=== PATIENT | female | born 1955 | race Caucasian/White ===

== ENCOUNTER 2021-08-13 07:08 | Outpatient (CLI) | payer OTHER, SELFPAY ==
--- NOTE | 2021-08-13 07:15 | USCV_ITS ---
GuajardoNikita partidaa Age: 66 Gender: F : 1955 Exam Date: 08/13/2021 07:22 Ordering Phys: Genny Webb NP Technologist: Jeff Miller Exam Location: [facility] – [place]_ Indication: RLE swelling PROCEDURES: Grayscale and duplex color Doppler venous Ultrasound performed in only the right lower extremity. FINDINGS: Normal 2-D Doppler and augmentation and compressibility throughout the lower extremity venous structures. Additional imaging through the proximal calf veins also reveals no thrombus. Limited evaluation of the greater saphenous vein is patent with no thrombus. CONCLUSIONS No DVT right lower extremity. Dr. Adela Eagle DO (Electronically Signed) Final Date: 13 August 2021 08:33 S
== END 2021-08-13 07:09 | disposition home or self-care (01) ==
LOC: US 07:11
PROVIDERS: PCP Family Medicine; Visit Provider Family Medicine
DX: M25.561 Pain in right knee (principal); M79.89 Other specified soft tissue disorders
CPT/HCPCS: 93971

== ENCOUNTER 2022-01-06 11:01 | Outpatient (CLI) | payer MEDICARE, SELFPAY ==
--- NOTE | 2022-01-06 11:41 | XR_ITS ---
WS: [id number] KNEE RIGHT TECHNIQUE: 3 views of the right knee CLINICAL INFORMATION: PAIN IN R KNEE COMPARISON: None. FINDINGS: Normal anatomic alignment. Moderate degenerative arthritis worse in the medial joint compartment. Min imal hypertrophic changes along the joint line. No acute fractures. Hypertrophic patella with distal quadriceps insertion enthesophyte. No significant joint effusion. XR/XR knee RT 3V* [id number] IMPRESSION: Moderate tricompartmental arthritis Kellgren-Faustino Classification: grade 3 (moderate): moderate multiple osteoph ytes, definite narrowing of joint space and some sclerosis and possible deformi ty of bone ends
--- NOTE | 2022-01-06 11:57 | XR_ITS ---
WS: [id number] KNEE LEFT TECHNIQUE: 3 views of the left knee CLINICAL INFORMATION: LEFT KNEE PAIN COMPARISON: None. FINDINGS: Normal anatomic alignment. Moderate degenerative arthritis worse in the medial joint compartment. Min imal hypertrophic changes along the joint line. No acute fractures. Hypertrophic patella with distal quadriceps insertion enthesophyte. No significant joint effusion. XR/XR knee LT 3V* [id number] IMPRESSION: Moderate tricompartmental arthritis worse in the medial joint compartment. Dege nerative arthritis slightly worse in the LEFT knee compared to the RIGHT. Kellgren-Faustino Classification:
== END 2022-01-06 11:02 | disposition home or self-care (01) ==
PROVIDERS: PCP Family Medicine; Visit Provider Family Medicine
DX: M13.862 Other specified arthritis, left knee (principal); M13.861 Other specified arthritis, right knee
CPT/HCPCS: 73562

== ENCOUNTER 2022-02-11 20:09 | Emergency (ER) | payer MEDICARE, SELFPAY ==
--- NOTE | 2022-02-11 20:27 | CTR_ITS ---
PROCEDURE INFORMATION: Exam: CT Head Without Contrast Exam date and time: 02/11/2022 9:50 PM Age: 67 years old Clinical indication: Injury or trauma; Fall; Blunt trauma (contusions or hematomas) TECHNIQUE: Imaging protocol: Computed tomography of the head without contrast. Radiation optimization: All CT scans at this facility use at least one of these dose optimization techniques: automated exposure control; mA and/or kV adjustment per patient size (includes targeted exams where dose is matched to clinical indication); or iterative reconstruction. COMPARISON: CT head wo con* [id number] 06/09/2018 6:57 PM RADIATION DOSE METRICS: Total DLP (mGy-cm): 818.26 FINDINGS: Brain: No acute abnormality. No edema or mass effect. No hemorrhage. Cerebral ventricles: No acute abnormality. No significant ventriculomegaly. Paranasal sinuses: No significant or acute abnormality. No air-fluid levels. Mastoid air cells: No acute abnormality. No significant mastoid effusion. Bones/joints: No acute osseous abnormality. No acute fracture. Soft tissues: No significant soft tissue abnormalities. CT/CT head wo con* [id number] IMPRESSION: No evidence of acute intracranial abnormality.
[2022-02-11 21:10] VITALS: BP 116/73; PULSE 74; RESP 16; TEMP 36.6; O2SAT 99; BMI 23.8
--- NOTE | 2022-02-11 21:15 | XRR_ITS ---
PROCEDURE INFORMATION: Exam: XR Left Shoulder Exam date and time: 02/11/2022 9:31 PM Age: 67 years old Clinical indication: Pain; Shoulder; Left; Additional info: Dislocation TECHNIQUE: Imaging protocol: XR Left shoulder. Views: 2 or more views. COMPARISON: CT Cervical Spine wo* [id number] 06/09/2018 7:00 PM FINDINGS: Bones/joints: There is minimally displaced fracture of the proximal humerus, involving the humeral neck and greater tuberosity region. There is no dislocation. Osteopenia is present. Soft tissues: Normal. Other findings: Three views submitted. XR/XR shoulder LT min 2V* [id number] IMPRESSION: Proximal humeral fracture with minimal displacement and no dislocation. Please also refer to shoulder CT exam report.
--- NOTE | 2022-02-11 21:45 | CTR_ITS ---
PROCEDURE INFORMATION: Exam: CT Left Upper Extremity Without Contrast, Shoulder Exam date and time: 02/11/2022 9:53 PM Age: 67 years old Clinical indication: Injury or trauma; Fall; Blunt trauma (contusions or hematomas); Shoulder; Left; Additional info: Possible dislocation TECHNIQUE: Imaging protocol: CT of the Left upper extremity without contrast was performed. Exam focused on the shoulder. Radiation optimization: All CT scans at this facility use at least one of these dose optimization techniques: automated exposure control; mA and/or kV adjustment per patient size (includes targeted exams where dose is matched to clinical indication); or iterative reconstruction. COMPARISON: CR (CHEST, ) 02/11/2022 9:31 PM RADIATION DOSE METRICS: Total DLP (mGy-cm): 1308.09 FINDINGS: Bones/joints: There is lipohemarthrosis in the glenohumeral joint. There is a slightly comminuted fracture involving the humeral neck and the greater tuberosity regions with minimal displacement of the fracture fragments. There is normal glenohumeral joint alignment. Osteopenia. Mild chronic AC joint hypertrophy. Next item no obvious glenoid process fracture. Soft tissues: Normal. Lymph nodes: Small calcified left hilar lymph node consistent with chronic granulomatous disease. CT/CT shoulder LT wo con* [id number] IMPRESSION: Proximal humeral fracture without dislocation. Other findings as above.
--- NOTE | 2022-02-11 21:56 | W.ED.FALL ---
HPI - Fall General: Chief Complaint: Extremity Injury, Upper Stated Complaint: collarbone injury due to fall, hit head Time Seen by Provider: 02/11/22 21:53 Course Vital Signs: Vital signs: Vital Signs Temperature 97.8 F 02/11/22 21:10 Pulse Rate 74 02/11/22 21:10 Respiratory Rate 16 02/11/22 21:10 Blood Pressure 116/73 02/11/22 21:10 Pulse Oximetry 99 02/11/22 21:10 Discharge Plan Discharge Condition: Stable Referrals: Sailaja Porras MD [Primary Care Provider] - Coding Level of Care Code ED Freelance Director for Nora Valverde
[2022-02-11 22:05] VITALS: BP 110/67; PULSE 80; RESP 18; O2SAT 97
--- NOTE | 2022-02-11 22:08 | ED_ITS ---
HPI - Extremity Problem General: Chief complaint: Extremity Injury, Upper Stated complaint: collarbone injury due to fall, hit head Time Seen by Provider: 02/11/22 21:53 Source: patient Mode of arrival: ambulatory Limitations: no limitations History of Present Illness: 67-year-old female who states that she tripped and fell just prior to arrival. She states she fell directly on her left shoulder has left shoulder pain she rates a 8 out of 10. States she is unable to move that arm without pain. States she also hit her head but denies any loss consciousness denies any neck pain patient's been amatory the event and denies any lower extremity pain Associated symptoms: Deny chest pain, fever(s) or rash Review of Systems Const: Denies: fever(s), chills, body aches or change in appetite Eyes: Denies: blurry vision or eye discomfort ENMT: Denies: throat pain or dental pain Card: Denies: chest pain Resp: Denies: dyspnea GI: Denies: abdominal pain, nausea, vomiting or diarrhea : Denies: dysuria Musc: Reports: extremity pain Skin/Breast: Denies: rash Neuro: Reports: headache(s) Psych: Denies: depression Markos/Lymph: Denies: easy bruising All/Imm: Denies: urticaria PFSH ED PFSH: Family History Denies family history of CAD (coronary artery disease) Social History Substance/Drug Use: never Physical Exam Const: COMMON NORMALS: no acute distress, patient oriented x3 and healthy appearing HENMT: COMMON NORMALS: normocephalic and atraumatic HEAD & SCALP: normocephalic and atraumatic Eye: COMMON NORMALS: Equal, round and reactive pupils present and EOMs intact bilaterally PUPIL: Yes Equal, round and reactive pupils present Neck/C-Spine: COMMON NORMALS: full ROM and supple OTHER: No midline tenderness no pain with range of motion Chest: COMMONS NORMALS: normal inspection of the chest and normal palpation of entire chest wall Resp: COMMON NORMALS: normal respiratory effort, No retractions, No use of accessory muscles and clear to auscultation bilaterally AUSCULTATION: clear to auscultation bilaterally Cardio: COMMON NORMALS: regular rate, regular rhythm and No murmurs present (Cardio) RATE: regular rate RHYTHM: regular rhythm GI: COMMON NORMALS: Normal to inspection, nondistended, normoactive bowel sounds present, Soft to palpation, non-tender and no masses PALPATION: Yes Soft to palpation Extremity: NARRATIVE EXTREMITY EXAM: No signs of dislocation on exam to the left shoulder she does have tenderness over the left proximal humerus Neuro: COMMON NORMALS: patient oriented x3, moves all extremities and no focal motor deficits Psych: COMMON NORMALS: mental status grossly normal, Normal thought process present and cooperative THOUGHT PROCESS: Normal thought process present Skin: COMMON NORMALS: no rashes or lesions noted and no wounds GENERAL SKIN EXAM: no rashes or lesions noted Course Vital Signs: Vital signs: Vital Signs Temperature 97.8 F 02/11/22 21:10 Pulse Rate 74 02/11/22 21:10 Respiratory Rate 16 02/11/22 21:10 Blood Pressure 116/73 02/11/22 21:10 Pulse Oximetry 99 02/11/22 21:10 MDM - Extremity (Nontraumatic) Medical Decision Making Patient presents here with proximal humerus fracture from a fall she is neurologically and vascularly intact. Patient placed in a sling will prescribe her pain meds she is to follow-up with orthopedics head CT is normal she has no C-spine tenderness no signs of C-spine injury. She is return if worsening. Lab Data Radiology Impressions Head CT 02/11/22 20:27 IMPRESSION: No evidence of acute intracranial abnormality. Shoulder X-Ray 02/11/22 21:15 IMPRESSION: Proximal humeral fracture with minimal displacement and no dislocation. Please also refer to shoulder CT exam report. Shoulder CT 02/11/22 21:45 IMPRESSION: Proximal humeral fracture without dislocation. Other findings as above. Discharge Plan Discharge Patient Disposition: Home Clinical Impression: Fall Fracture of humerus Qualifiers: Encounter type: initial encounter Humerus Location: proximal Fracture type: closed Fracture alignment: nondisplaced Laterality: left Condition: Stable Prescriptions: New hydrocodone-acetaminophen 5-325 mg tablet 1 tab PO Q6H PRN (Reason: pain) Qty: 14 0RF ondansetron 4 mg tablet,disintegrating 4 mg PO Q6H PRN (Reason: nausea and vomiting) Qty: 14 0RF Discharge Orders: Discharge ED (Routine); Ordered 02/11/22 Ordered By: Ubaldo Villalba Referrals: Sailaja Porras MD [Primary Care Provider] - Luis Felipe Rendon MD [Physician] - 1-3 days Discharge Diet: Advance as tolerated Discharge Activity: Resume usual activity Patient Instructions: Arm Fracture in Adults (ED), Opioid Safety Coding Level of Care Code ED Inspector Receiving for Chg Fwd Exam Comprehensive
[2022-02-11] MEDS: ondansetron 4 MG Tablet PO (22:23)
[2022-02-11] MEDS: HYDROcodone-acetaminophen 7.5-325 mg Tablet 1 TAB PO (22:24)
[2022-02-11 22:30] VITALS: BP 108/72; PULSE 74; RESP 18; O2SAT 97
[2022-02-11 23:00] VITALS: BP 102/61; PULSE 76; RESP 18; O2SAT 95
--- NOTE | 2022-02-12 10:33 | DCPLANNER ---
Addendum entered by Roma Amado 03/18/22 20:02: Patient had a follow up appointment scheduled with ortho - patient did not attend appointment. Addendum entered by Roma Amado 02/13/22 06:39: Patient had a follow up appointment scheduled for Thursday, February 17, 2022 at 10:00 with YON Jovel at ortho. Clinic will call patient with appointment information. Original Note: creative manager had message to schedule a follow up appointment for patient with ortho. creative manager sent patients information to the front staff at ortho. Patients information will be printed and reviewed. Clinic will call patient with appointment information.
== END 2022-02-11 23:00 | disposition home or self-care (01) ==
PROVIDERS: Emergency Provider Emergency Medicine; PCP Family Medicine
DX: S42.202A Unspecified fracture of upper end of left humerus, initial encounter for closed fracture (principal); W01.0XXA Fall on same level from slipping, tripping and stumbling without subsequent striking against object, initial encounter
CPT/HCPCS: 70450; 73030; 73200; 99283; Q0162

== ENCOUNTER 2022-08-13 08:18 | Outpatient (CLI) | payer MEDICARE, SELFPAY ==
--- NOTE | 2022-08-13 08:27 | MM_ITS ---
WS: [id number] BILATERAL SCREENING DIGITAL TOMOSYNTHESIS MAMMOGRAM WITH CAD HISTORY: SCREENING COMPARISON: 04/20/2018 and 04/27/2016 Bilateral CC and MLO views with tomosynthesis and synthetic mammography submitted. Computer aided det ection analyzed. Breast composition: The breasts are heterogeneously dense, which may obscure small masses. No suspici ous masses, microcalcifications or architectural distortion. MM/[place] [id number] IMPRESSION: BI-RADS: 1-Negative FOLLOW UP: 1 Year Follow-up
== END 2022-08-13 08:19 | disposition home or self-care (01) ==
LOC: RAD 08:18
PROVIDERS: PCP Family Medicine; Visit Provider Family Medicine
DX: Z12.31 Encounter for screening mammogram for malignant neoplasm of breast (principal)
CPT/HCPCS: 77063; 77067

== ENCOUNTER 2022-09-25 08:06 | Outpatient (CLI) | payer MEDICARE, SELFPAY ==
--- NOTE | 2022-09-25 08:24 | MR_ITS ---
WS: [id number] MRI BRAIN WITH AND WITHOUT CONTRAST HISTORY: DISORDER OF FACIAL NERVE COMPARISON: None available. TECHNIQUE: Multiplanar imaging performed through the brain with MultiHance 13 ml's IV. No acute infarcts are seen. Metcalf-white matter differentiation is well preserved. Bilateral frontal lo be T2 and FLAIR signal hyperintensities. Slightly greater number on the RIGHT. No susceptibility artifacts or prior lacunar infarcts. Ventricles and extra-axial spaces are normal. Clivus and pituitary gland are normal. Visualized posterior fossa and brainstem are also normal. No enhancing masses. Small venous angioma in the posterior LEFT frontal lobe. Dural venous sinuses are normal. Filling defects in the transverse sinuses consistent with arachnoid granulations. Paranasal sinuses: Well aerated with no significant disease. Mastoid air cells: Normal. Calvarium and scalp: Normal. MR/MR head wo/w con [id number] IMPRESSION: 1. No enhancing mass or signal abnormalities near the facial nerve. 2. Bilateral subcortical frontal lobe white matter foci. This can be seen with microvascular ischemic disease or migraines. 3. Incidental finding of a very small venous angioma in the posterior LEFT fro ntal lobe. 4. No prior infarcts. No hemorrhage.
[2022-09-25] MEDS: gadobenate dimeglumine 20 mL vial IV (08:58)
== END 2022-09-25 08:07 | disposition home or self-care (01) ==
PROVIDERS: PCP Family Medicine; Visit Provider Family Medicine
DX: G51.9 Disorder of facial nerve, unspecified (principal); I67.82 Cerebral ischemia; Q28.3 Other malformations of cerebral vessels
CPT/HCPCS: 70553; A9577

== ENCOUNTER → 2023-01-07 15:09 | Outpatient (BNVA) | payer MEDICARE, SELFPAY | PROVIDERS: PCP Family Medicine; Visit Provider Surgery | DX: R10.9 Unspecified abdominal pain (principal) | CPT/HCPCS: 99203 ==

== ENCOUNTER 2024-02-24 15:03 | Outpatient (CLI) | payer MEDICARE, SELFPAY ==
--- NOTE | 2024-02-24 15:08 | MM_ITS ---
WS: [id number] VIEWS: MLO and CC views both breasts. 3D digital tomosynthesis is also included in this exam. Comparison made with prior exam of 05/05/2007, 10/29/2008, 10/12/2011, 11/10/2011, 05/01/2013, 09/12/2014, 04/27/2016, 04/20/2018, 08/13/2022,. Findings: There was no sign of mass, architectural distortion or suspicious calcification in either breast. The breasts are heterogeneously dense which may obscure small masses. Impression: MM/[place] [id number] BI-RADS: 1-Negative FOLLOW-UP: 1 Year Follow-up This mammogram was also analyzed by the Computer Aided Detection System R2 Imag e Dryer Feeder.
== END 2024-02-24 15:04 | disposition home or self-care (01) ==
LOC: RAD 15:05
PROVIDERS: PCP Family Medicine; Visit Provider Family Medicine
DX: Z12.31 Encounter for screening mammogram for malignant neoplasm of breast (principal)
CPT/HCPCS: 77063; 77067